=== PATIENT | male | born 1935 | race Two or more races ===

== ENCOUNTER 2016-08-06 17:22 | Emergency (ER) | payer OTHER ==
[2016-08-06 17:58] VITALS: BP 140/80; PULSE 67; RESP 18; TEMP 98; O2SAT 94
--- NOTE | 2016-08-06 18:16 | EDPHY ---
H & P Time Seen by Provider: 08/06/16 18:14 HPI/ROS: Chief complaint. Back pain HPI. 80-year-old male presents with low back pain for 1 week. No injury or unusual activity. He is quite active and rides a bicycle every day. He has no pain with sitting but he has pain in his right lower back that radiates down his right leg with walking. He seen a chiropractor twice this week who describes his symptoms as sciatica. However the chiropractor manipulation has made his discomfort worse. He denies any leg weakness. No change in sensation. No bowel or bladder symptoms. No fever. He has had similar symptoms with sciatica on the left leg in the past. He has been using Tylenol and ibuprofen with inadequate relief. No abdominal pain or vomiting or diarrhea [place]. No chest pain or shortness of breath. ROS Constitutional. no fever/chills, no weakness Eyes. no problems with vision ENT. no sore throat, no nasal drainage Cardiovascular. no chest pain Respiratory. no shortness of breath, no cough Abdominal. no abdominal pain, no nausea/vomiting, no diarrhea . no problems urinating MS. Low back pain with radiation down the right leg. Skin. no rash Lymph. no swollen glands Neuro. no headache, no dizziness, no difficulty walking or with speech Past Medical/Surgical History: Past medical history includes to knee replacements, [place] in 2013 with coronary artery disease. Kidney stones. Social History: , nonsmoker, no alcohol Smoking Status: Never smoked Physical Exam: General Appearance: Alert well-developed male mild distress vital signs stable Eyes: Pupils equal and round no pallor or injection. ENT, Mouth: Mucous membranes are moist. Respiratory: There are no retractions, lungs are clear to auscultation. Cardiovascular: Regular rate and rhythm. Gastrointestinal: Abdomen is soft and nontender, no masses, bowel sounds normal. Neurological: Awake and alert, sensory and motor exams grossly normal. Straight leg raising negative at 30 degrees bilaterally. Deep tendon reflexes are symmetrical. Great toe strength is normal. Legs sensation is normal bilaterally. Skin: Warm and dry, no rashes. Musculoskeletal: Neck is supple nontender. Tenderness to the right paralumbar area and right hip. Extremities symmetrical, full range of motion. Psychiatric: Patient is oriented X 3, there is no agitation. Constitutional: Initial Vital Signs Temperature (C) 36.6 C 08/06/16 17:56 Heart Rate 67 08/06/16 17:56 Respiratory Rate 18 08/06/16 17:56 Blood Pressure 140/80 H 08/06/16 17:56 O2 Sat (%) 94 08/06/16 17:56 O2 Delivery Mode Room Air Allergies/Adverse Reactions: No Known Allergies Allergy (Verified 06/29/15 12:33) Home Medications: Medication Instructions Recorded Lisinopril [Zestril 10 mg (*)] 10 mg PO DAILY 06/22/15 Metoprolol Succinate Xr [Toprol Xl 25 mg PO DAILY 06/22/15 25 mg (*)] Acetaminophen [Tylenol 325mg (*)] 650 mg PO Q6 #0 tab 07/31/15 Aspirin EC [Aspirin EC 325 mg (*)] 325 mg PO DAILY #0 tab 07/31/15 Docusate Sodium [Colace 100 MG (*)] 100 mg PO BID #0 cap 07/31/15 celeCOXIB [Celebrex (*)] 200 mg PO DAILY #20 cap 07/31/15 oxyCODONE/APAP 5/325 [Percocet 1 tab PO Q4-6PRN PRN #10 tab 08/06/16 5/325] predniSONE 40 mg PO DAILY #8 tablet 08/06/16 Medical Decision Making ED Course/Re-evaluation: Patient remained stable. He and I discussed treatment plan including criteria for return and importance of follow-up and further evaluation. Expresses understanding and agreement Differential Diagnosis: I considered cauda equina syndrome however the patient has no leg weakness and no bowel or bladder symptoms or altered sensation. I have considered HNP. I have considered low back pain and strain. Departure - Departure Disposition: Home, Routine, Self-Care Clinical Impression: Low back pain with sciatica Qualifiers: Chronicity: acute Back pain laterality: right Sciatica laterality: sciatica of right side Qualified Code(s): M54.41 - Lumbago with sciatica, right side Condition: Good Instructions: Sciatica (ED), Lower Back Exercises (ED) Additional Instructions: Ice to sore area of your low back next 24-48 hours. Percocet as needed for pain and may use either 1/2 or 1 full pill for pain. Prednisone for the next 4 days for pain. Easy activity but avoid chiropractor the next 2-3 days. Return for leg weakness or bowel or bladder symptoms. The Percocet can make you constipated so increased fluids and consider milk of magnesia or Colace to help prevent constipation. Recheck by Dr. Schafer in 2-3 days if not improved Referrals: Miriam Schafer MD [Primary Care Provider] - 2-3 days, if not improved Prescriptions: oxyCODONE/APAP 5/325 [Percocet 5/325] 1 tab PO Q4-6PRN PRN #10 tab PRN Reason: Pain, Moderate predniSONE 40 mg PO DAILY #8 tablet
== END 2016-08-06 18:40 | disposition home or self-care (01) ==
LOC: CED 17:22
DX: M54.41 Lumbago with sciatica, right side (principal); I25.10 Atherosclerotic heart disease of native coronary artery without angina pectoris; Z79.82 Long term (current) use of aspirin

== ENCOUNTER → 2016-08-09 | Outpatient (CLI) | payer OTHER | LOC: CIMAGING 12:41 | PROVIDERS: ATTEND Internal Medicine | DX: M54.30 Sciatica, unspecified side (principal); M47.897 Other spondylosis, lumbosacral region | CPT/HCPCS: 72100-PO ==

== ENCOUNTER → 2016-08-31 | Outpatient (CLI) | payer OTHER | LOC: FIMAGING 18:11 | PROVIDERS: ATTEND Internal Medicine | DX: M54.31 Sciatica, right side (principal); M51.36 Other intervertebral disc degeneration, lumbar region; M43.06 Spondylolysis, lumbar region; Q76.49 Other congenital malformations of spine, not associated with scoliosis; M51.26 Other intervertebral disc displacement, lumbar region; M48.06 Spinal stenosis, lumbar region ==

== ENCOUNTER → 2017-07-19 | Outpatient (CLI) | payer OTHER | LOC: BHCLAF 14:15 | PROVIDERS: ATTEND Internal Medicine Cardiovascular Disease | DX: I25.10 Atherosclerotic heart disease of native coronary artery without angina pectoris (principal); R07.9 Chest pain, unspecified; R06.02 Shortness of breath | CPT/HCPCS: 93005-PO ==

== ENCOUNTER → 2017-07-25 | Outpatient (CLI) | payer OTHER | LOC: BHFA 11:30 | PROVIDERS: ATTEND Internal Medicine Interventional Cardiology | DX: R07.9 Chest pain, unspecified (principal); R06.02 Shortness of breath; I25.10 Atherosclerotic heart disease of native coronary artery without angina pectoris ==